=== PATIENT | male | born 1985 | race Caucasian/White ===

== ENCOUNTER 2016-07-05 07:23 | Emergency (ER) | payer OTHER ==
[2016-07-05] MEDS ORDERED: KETOROLAC TROMETHAMINE 30 MG/1 ML VIAL ONE (07:31)
[2016-07-05] MEDS ORDERED: METOCLOPRAMIDE HCL INJECTION 10 MG/2 ML VIAL ONE (07:31)
[2016-07-05] MEDS ORDERED: KETOROLAC TROMETHAMINE 30 MG/1 ML VIAL IVPUSH ONE (07:32)
[2016-07-05] MEDS ORDERED: SODIUM CHLORIDE 1,000 ML IV STA (07:32)
[2016-07-05] MEDS ORDERED: ONDANSETRON 4 MG/2 ML VIAL IVPUSH ONE (07:32)
[2016-07-05 07:35] VITALS: TEMP 97.4; BMI 19.9
[2016-07-05] MEDS ORDERED: METOCLOPRAMIDE HCL INJECTION 10 MG/2 ML VIAL IVPB ONE (07:39)
[2016-07-05 08:17] LABS: BASOPHIL 1.2 % (0-2.0); EOSINOPHIL 1.1 % (0-4.5); MCH 30.8 pg (25.7-33.7); MCHC 33.1 g/dl (32.0-35.9); MEAN CELL VOLUME 92.9 fl (80-96); MEAN PLT VOLUME 8.4 fl (7.5-11.1); NEUTROPHILS 69.5 % (42.8-82.8); PLATELET COUNT 202 K/MM3 (134-434); RDW 13.5 % (11.9-15.9); WHITE BLOOD COUNT 9.5 K/mm3 (4.0-10.0)
[2016-07-05 08:24] LABS: URINE APPEARANCE SLCLOUDY; URINE BILIRUBIN NEGATIVE (NEGATIVE); URINE COLOR YELLOW; URINE GLUCOSE (UA) NEGATIVE (NEGATIVE); URINE KETONE NEGATIVE (NEGATIVE); URINE LEUK ESTERASE NEGATIVE (NEGATIVE); URINE NITRITE NEGATIVE (NEGATIVE); URINE UROBILINOGEN NEGATIVE E.U./dl (0.2-1.0)
[2016-07-05 08:33] LABS: URINE BLOOD 3+ (NEGATIVE); URINE PROTEIN 1+ (NEGATIVE)
[2016-07-05 08:39] LABS: URINE MUCUS MODERATE; URINE RBC 1147 /hpf (0-3); URINE WBC 13 /hpf (3-5); YEAST RARE
--- NOTE | 2016-07-05 09:44 | PDOC ---
History of Present Illness - General History Source: Patient Exam Limitations: No Limitations - History of Present Illness Initial Comments: 07/05/16 09:46 The patient is a 31 year old male with no significant past medical history who presents to the emergency department with right flank pain since this morning. The patient states he was woken up from sleep with a sudden onset of severe right flank pain this morning His pain is sharp and constant in nature. The pain is localized to the right flank and radiates to the right abdomen. He states the pain is worse with movement and he denies any alleviating factors. The patient reports associated nausea but denies any vomiting. He has never experienced any pain like this before. He did not take any medication for his pain at home. He denies any recent illness, fevers, and chills. <Gracie Hauser - Last Filed: 07/05/16 09:58> <Addy Olivia - Last Filed: 07/05/16 10:41> - General Chief Complaint: Pain, Acute Stated Complaint: SIDE PAIN Time Seen by Provider: 07/05/16 07:26 Past History <Gracie Hauser - Last Filed: 07/05/16 09:58> - Past Medical History Other medical history: denies - Immunization History Immunization Up to Date: Yes - Psycho/Social/Smoking Cessation Hx Anxiety: Yes Suicidal Ideation: No Smoking History: Never smoked Have you smoked in the past 12 months: No Information on smoking cessation initiated: No Hx Alcohol Use: No Drug/Substance Use Hx: No Substance Use Type: None <Addy Olivia - Last Filed: 07/05/16 10:41> - Past Medical History Allergies/Adverse Reactions: Allergies Allergy/AdvReac Type Severity Reaction Status Date / Time No Known Allergies Allergy Verified 03/25/15 14:18 Home Medications: Ambulatory Orders Oxycodone HCl/Acetaminophen [Percocet 5-325 mg Tablet] 1 tab PO Q6H #14 tablet MDD 4 07/05/16 Review of Systems - Review of Systems Able to Perform ROS?: Yes Comments:: 07/05/16 09:46 CONSTITUTIONAL: No fever, no chills, no fatigue EYES: No visual changes ENT: No ear pain, no sore throat CARDIOVASCULAR: No chest pain, no palpitations RESPIRATORY: No cough, no SOB GI: +Nausea. No abdominal pain, no vomiting, no constipation, no diarrhea GENITOURINARY: No dysuria, no frequency, no hematuria MUSCULOSKELETAL: +Right flank pain. No back pain, no joint pain, no myalgias SKIN: No rash NEURO: No headache <Gracie Hauser - Last Filed: 07/05/16 09:58> *Physical Exam - Vital Signs Last Vital Signs Temp Pulse Resp BP Pulse Ox 97.4 F L 89 22 165/88 100 07/05/16 07:30 07/05/16 07:30 07/05/16 07:30 07/05/16 07:30 07/05/16 07:30 - Physical Exam Comments: 07/05/16 09:46 CONSTITUTIONAL: Well-appearing; well-nourished; +writhing in pain. HEAD: Normocephalic; atraumatic EYES: PERRL; EOM intact ENMT: External appears normal; normal oropharynx NECK: Supple; non-tender; no cervical lymphadenopathy CARD: Normal S1, S2; no murmurs, rubs, or gallops RESP: Normal chest excursion with respiration; breath sounds clear and equal bilaterally; no wheezes, rhonchi, or rales ABD: +Right CVA tenderness. Soft, non-distended; non-tender; no palpable organomegaly, no palpable hernias EXT: Normal ROM in all four extremities; non-tender to palpation; distal pulses intact SKIN: Warm, dry, no rash NEURO: No focal neurological deficiencies. <MurtazaGracie - Last Filed: 07/05/16 09:58> - Vital Signs Last Vital Signs Temp Pulse Resp BP Pulse Ox 97.4 F L 89 22 165/88 100 07/05/16 07:30 07/05/16 07:30 07/05/16 07:30 07/05/16 07:30 07/05/16 07:30 <Addy Olivia - Last Filed: 07/05/16 10:41> ED Treatment Course - LABORATORY CBC & Chemistry Diagram: 07/05/16 07:41 07/05/16 07:41 - ADDITIONAL ORDERS Additional order review: Laboratory Results 07/05/16 07/05/16 07:41 07:41 Sodium Cancelled Potassium Cancelled Chloride Cancelled Carbon Dioxide Cancelled Anion Gap Cancelled BUN Cancelled Creatinine Cancelled Creat Clearance w eGFR Cancelled Random Glucose Cancelled Calcium Cancelled Total Bilirubin Cancelled AST Cancelled ALT Cancelled Alkaline Phosphatase Cancelled Total Protein Cancelled Albumin Cancelled Urine Color Yellow Urine Appearance Slcloudy Urine pH 6.0 Ur Specific [place] 1.019 Urine Protein 1+ H Urine Glucose (UA) Negative Urine Ketones Negative Urine Blood 3+ H Urine Nitrite Negative Urine Bilirubin Negative Urine Urobilinogen Negative Ur Leukocyte Esterase Negative Urine RBC 1147 Urine WBC 13 Urine Mucus Moderate Urine Yeast Rare 07/05/16 07:41 RBC 5.38 MCV 92.9 MCHC 33.1 RDW 13.5 MPV 8.4 Neutrophils % 69.5 Lymphocytes % 21.9 Monocytes % 6.3 Eosinophils % 1.1 Basophils % 1.2 - RADIOLOGY Radiograph Interpretation: 07/05/16 09:59 CT/SPIRAL RENAL STONE CT: Reviewed and interpreted by radiologist Dre Mendoza MD. IMPRESSION: 2.5 mm obstructing stone in the distal right ureter just prior to the ureterovesical junction with mild fullness of the right renal pelvis and mild right hydroureter.. Follow-up is needed. No right renal stone is identified. Nonobstructing left renal stones with the largest measuring 5 mm. - Medications Given in the ED: ED Medications Discontinued Medications Generic Name Dose Route Start Last Admin Trade Name Freq PRN Reason Stop Dose Admin Sodium Chloride 1,000 mls @ 1,000 mls/hr 07/05/16 07:32 07/05/16 07:30 Normal Saline - IV 07/05/16 08:31 1,000 mls/hr ASDIR STA Administration Ketorolac Tromethamine 30 mg 07/05/16 07:32 07/05/16 07:30 Toradol Injection - IVPUSH 07/05/16 07:33 30 mg ONCE ONE Administration Metoclopramide HCl 10 mg 07/05/16 07:39 07/05/16 07:30 Reglan Injection - IVPB 07/05/16 07:40 10 mg ONCE ONE Administration Ondansetron HCl 4 mg 07/05/16 07:32 07/05/16 07:47 Zofran Injection IVPUSH 07/05/16 07:33 Not Given ONCE ONE <Gracie Hauser - Last Filed: 07/05/16 09:58> - LABORATORY CBC & Chemistry Diagram: 07/05/16 07:41 07/05/16 09:25 - ADDITIONAL ORDERS Additional order review: Laboratory Results 07/05/16 07/05/16 07:41 07:41 Sodium Cancelled Potassium Cancelled Chloride Cancelled Carbon Dioxide Cancelled Anion Gap Cancelled BUN Cancelled Creatinine Cancelled Creat Clearance w eGFR Cancelled Random Glucose Cancelled Calcium Cancelled Total Bilirubin Cancelled AST Cancelled ALT Cancelled Alkaline Phosphatase Cancelled Total Protein Cancelled Albumin Cancelled Urine Color Yellow Urine Appearance Slcloudy Urine pH 6.0 Ur Specific [place] 1.019 Urine Protein 1+ H Urine Glucose (UA) Negative Urine Ketones Negative Urine Blood 3+ H Urine Nitrite Negative Urine Bilirubin Negative Urine Urobilinogen Negative Ur Leukocyte Esterase Negative Urine RBC 1147 Urine WBC 13 Urine Mucus Moderate Urine Yeast Rare 07/05/16 07:41 RBC 5.38 MCV 92.9 MCHC 33.1 RDW 13.5 MPV 8.4 Neutrophils % 69.5 Lymphocytes % 21.9 Monocytes % 6.3 Eosinophils % 1.1 Basophils % 1.2 - RADIOLOGY Radiology Studies Ordered: Category Date Time Status SPIRAL- RENAL-STONE CT [CT] Stat CT Scan 07/05/16 08:33 Taken - Medications Given in the ED: ED Medications Discontinued Medications Generic Name Dose Route Start Last Admin Trade Name Freq PRN Reason Stop Dose Admin Sodium Chloride 1,000 mls @ 1,000 mls/hr 07/05/16 07:32 07/05/16 07:30 Normal Saline - IV 07/05/16 08:31 1,000 mls/hr ASDIR STA Administration Ketorolac Tromethamine 30 mg 07/05/16 07:32 07/05/16 07:30 Toradol Injection - IVPUSH 07/05/16 07:33 30 mg ONCE ONE Administration Metoclopramide HCl 10 mg 07/05/16 07:39 07/05/16 07:30 Reglan Injection - IVPB 07/05/16 07:40 10 mg ONCE ONE Administration Ondansetron HCl 4 mg 07/05/16 07:32 07/05/16 07:47 Zofran Injection IVPUSH 07/05/16 07:33 Not Given ONCE ONE <Addy Olivia - Last Filed: 07/05/16 10:41> Medical Decision Making - Medical Decision Making 07/05/16 10:28 Patient is a 31-year-old male who presented with atraumatic right flank pain radiating to the right lower quadrant, associated with nausea. I suspect renal colic. CBC/CMP within normal limit. Urinalysis reveals more than 1100 RBCs per high-power field and 13 WBCs likely related to hematuria. I do not suspect UTI. CT shows an obstructing 2.5 mm distal ureteral stone with hydronephrosis. Patient received Toradol and Zofran and is currently symptom-free. Patient tolerates by mouth. Will discharge with pain meds and urology follow-up for further evaluation and treatment <Addy Olivia - Last Filed: 07/05/16 10:41> *DC/Admit/Observation/Transfer - Attestations Scribe Attestion: 07/05/16 09:46 Documentation prepared by Gracie Hauser, acting as medical equipment sales for Addy Olivia MD. <Gracie Hauser - Last Filed: 07/05/16 09:58> - Attestations Physician Attestion: 07/05/16 10:28 The documentation was prepared by the scribe under my direct supervision. I have reviewed the documentation which correctly represents the findings, medical decision-making and critical action taken by me. <Addy Olivia - Last Filed: 07/05/16 10:41> Diagnosis at time of Disposition: Calculus of right kidney - Discharge Dispostion Disposition: HOME Condition at time of disposition: Stable - Referrals Referrals: Alonso Barnes MD [Staff Physician] - - Patient Instructions Printed Discharge Instructions: DI for Kidney Stones
[2016-07-05 10:06] LABS: ALBUMIN 3.9 g/dl (3.4-5.0); ALK PHOS 80 U/L (45-117); ANION GAP 6 (8-16); BILIRUBIN,TOTAL 0.4 mg/dL (0.2-1.0); CALCIUM 8.5 mg/dL (8.5-10.1); CO2 29 mmol/L (21-32); CREATININE 1.2 mg/dL (0.7-1.3); GLUCOSE,RANDOM 84 mg/dL (74-106); SGOT/AST 25 U/L (15-37); SGPT/ALT 26 U/L (12-78); TOT PROT 6.9 g/dl (6.4-8.2)
[2016-07-05 10:49] VITALS: BP 129/74; PULSE 80
== END 2016-07-05 10:49 | disposition home or self-care (01) ==
LOC: JER 07:23
PROC: 3E0333Z Introduction of Anti-inflammatory into Peripheral Vein, Percutaneous Approach (ICD-10-PCS; principal; 2016-07-05)
PROC: 3E033GC Introduction of Other Therapeutic Substance into Peripheral Vein, Percutaneous Approach (ICD-10-PCS; 2016-07-05)
PROC: 3E0337Z Introduction of Electrolytic and Water Balance Substance into Peripheral Vein, Percutaneous Approach (ICD-10-PCS; 2016-07-05)
DX: N23 Unspecified renal colic (principal)
CPT/HCPCS: 36415; 74176; 80053; 81003; 81015; 85025; 87086; 96361; 96374; 96375; 99283-25

== ENCOUNTER → 2016-07-10 | Emergency (ER) | payer OTHER ==
[~2016-07-10] MED LIST: ALBUTEROL SO4 0.083% IH SOL 2.5 MG/3 ML VIAL.NEB. NEB ONE; IBUPROFEN 800 MG/8 ML IJ IVPB ONE; METOCLOPRAMIDE HCL INJECTION 10 MG/2 ML VIAL IVPUSH ONE; METOCLOPRAMIDE HCL INJECTION 10 MG/2 ML VIAL ONE; SODIUM CHLORIDE 1,000 ML IV ONE
[2016-07-10 10:36] VITALS: TEMP 98.8; BMI 19.9
--- NOTE | 2016-07-10 11:55 | PDOC ---
[id number]: No Limitations - History of Present Illness Initial Comments: 07/10/16 12:26 The patient is a 31-year-old man, with a past medical history of anxiety who presents to the emergency department for further evaluation of chest pain. He admits he has been experiencing intermittent episodes of mid-sternal, nonradiating pressure chest discomfort for the past few months. His last episode was approximately 2 weeks ago, which lasted several hours and resolves on its own. He went out last night, smoked hookah and at approximately 04:00 AM , he experienced his typical chest discomfort symptoms that woke him up from his sleep. He reports measuring both his blood pressure and heart rate. He does not recall the measurements but states it was elevated. He expresses concern, as his symptoms have remains constant, which is different than usual. 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 He denies associated symptoms of fever, chills, cough, generalized weakness, shortness of breath, headache, visual changes, leg swelling, abdominal pain, nausea, vomiting, diarrhea. He also reports his right flank/back pain. He was seen in this ED, approximately 5 days ago, for which he underwent a Spiral CT that was indicative of a 2.5 mm obstructing stone in the distal right ureter just prior to the ureterovesical junction with mild fullness of the right pelvis and mild right hydroureter. He currently denies any urinary symptoms. Allergies: No Known Drug Allergies. Past Surgical History: None reported. Social History: No tobacco, ETOH and recreational drug use. Primary Care Physician: Dr. Mars Marcus [phone] <Eugenie Alvarado - Last Filed: 07/10/16 19:19> - General History Source: Patient Exam Limitations: No Limitations <Song Malik - Last Filed: 07/12/16 09:09> - General Chief Complaint: Chest Pain Stated Complaint: PALPITATIONS, CHEST PAIN Time Seen by Provider: 07/10/16 11:29 Past History <Eugenie Alvarado - Last Filed: 07/10/16 19:19> - Past Medical History Other medical history: denies - Immunization History Immunization Up to Date: Yes - Psycho/Social/Smoking Cessation Hx Anxiety: Yes Suicidal Ideation: No Smoking History: Never smoked Have you smoked in the past 12 months: No Hx Alcohol Use: No Drug/Substance Use Hx: No Substance Use Type: None <KingSong - Last Filed: 07/12/16 09:09> - Past Medical History Allergies/Adverse Reactions: Allergies Allergy/AdvReac Type Severity Reaction Status Date / Time No Known Allergies Allergy Verified 07/10/16 12:23 Home Medications: Ambulatory Orders NK [No Known Home Medication] 07/10/16 Review of Systems - Review of Systems Able to Perform ROS?: Yes Comments:: 07/10/16 12:26 CONSTITUTIONAL: No reported: Fever, Chills, Diaphoresis, Generalized Weakness, Malaise, Loss of Appetite HEENT: No reported: Rhinorrhea, Nasal Congestion, Throat Pain, Throat Swelling, Difficulty Swallowing, Mouth Swelling, Ear Pain, Eye Pain, Visual Changes CARDIOVASCULAR: No reported: Chest Pain, Syncope, Palpitations, Irregular Heart Rate, Lightheadedness, Peripheral Edema RESPIRATORY: No reported: Cough, Shortness of Breath, SOB with Exertion, Orthopnea, Wheezing , Stridor, Hemoptysis GASTROINTESTINAL: No reported: Abdominal pain, Abdominal Distension, Nausea, Vomiting, Diarrhea, Constipation, Melena, Hematochezia GENITOURINARY: No reported: Dysuria, Frequency, Urgency, Hesitancy, Flank Pain, Genital Pain MUSCULOSKELETAL: No reported: Myalgia, Arthralgia, Joint Swelling, Back pain, Neck Pain SKIN: No reported: Rash, Itching, Pallor HEMEATOLOGIC/IMMUNOLOGIC: No reported: Easy Bleeding, Easy Bruising, Lymphadenopathy, Frequent infections ENDOCRINE: No reported: Unexplained Weight Gain, Unexplained Weight Loss, Heat Intolerance , Cold Intolerance NEUROLOGIC: No reported: Headache, Focal Weakness, Paresthesias, Vertigo, Lightheadedness, Unsteady Gait, Seizure, Mental Status Changes, Incontinence PSYCHIATRIC: No reported: Anxiety, Depression <Eugenie Alvarado - Last Filed: 07/10/16 19:19> *Physical Exam - Vital Signs Last Vital Signs Temp Pulse Resp BP Pulse Ox 98.8 F 124 H 14 146/82 98 07/10/16 10:31 07/10/16 10:31 07/10/16 10:31 07/10/16 10:31 07/10/16 10:31 - Physical Exam Comments: 07/10/16 12:26 GENERAL: The patient is awake, alert, and fully oriented, Nontoxic - in no acute distress. HEAD: Normocephalic, atraumatic. EYES: extraocular movements intact, sclera anicteric, conjunctiva clear. ENT: Normal voice, mildly dry mucous membranes. NECK: Normal range of motion, supple LUNGS: Breath sounds equal, clear to auscultation bilaterally. No wheezes, no rhonchi, no rales. HEART: tachycardic, without murmur, rub or gallop. ABDOMEN: Soft, there is some mild tenderness to palpation over the left lower quadrant. Normoactive bowel sounds. No guarding, no rebound.No CVA tenderness EXTREMITIES: Normal range of motion, no edema. No clubbing or cyanosis. No cords, erythema, or tenderness. Negative homans NEUROLOGICAL: No facial assymetry, Normal speech, PSYCH: Normal mood, normal affect. SKIN: Warm, Dry, normal turgor <Eugenie Alvarado - Last Filed: 07/10/16 19:19> - Vital Signs Last Vital Signs Temp Pulse Resp BP Pulse Ox 98.8 F 124 H 14 146/82 98 07/10/16 10:31 07/10/16 10:31 07/10/16 10:31 07/10/16 10:31 07/10/16 10:31 <Song Malik - Last Filed: 07/12/16 09:09> Heart Score/ECG Review - ECG Impressions Comment:: 07/10/16 12:16 Twelve-lead EKG was performed and reviewed by me. There is normal sinus rhythm with a rate of 124 The axis is normal. The intervals are normal. There is normal R wave progression There are no ST or T wave abnormalities. Impression: sinus tachyardia <Song Malik - Last Filed: 07/12/16 09:09> ED Treatment Course - LABORATORY CBC & Chemistry Diagram: 07/10/16 11:30 07/10/16 12:28 - RADIOLOGY Radiograph Interpretation: 07/10/16 16:08 EXAM: RAD/CHEST PA LAT IMPRESSION: Frontal and lateral views of the chest reveal a normal sized heart with normal vascularity. The lung watts are clear without evidence of mass or infiltrate. The costophrenic sulci are clear. The mediastinal, osseous and soft tissue structures as visualized are normal. - Medications Given in the ED: ED Medications Discontinued Medications Generic Name Dose Route Start Last Admin Trade Name Myron PRN Reason Stop Dose Admin Metoclopramide HCl 10 mg 07/10/16 11:51 07/10/16 12:04 Reglan Injection - IVPUSH 07/10/16 11:52 10 mg ONCE ONE Administration <Eugenie Alvarado - Last Filed: 07/10/16 19:19> - LABORATORY CBC & Chemistry Diagram: 07/10/16 11:30 07/10/16 12:28 - RADIOLOGY Radiology Studies Ordered: Category Date Time Status CHEST PA & LAT [RAD] Stat Radiology 07/10/16 11:53 Ordered <Song Malik - Last Filed: 07/12/16 09:09> Medical Decision Making - Medical Decision Making 07/10/16 12:14 31y M hx of kidney stones presents with complaint of chest pain, palpitations, cp described as substernal pressure starting approx 4am, pt does endorse having some hookah last night, unsure if it had nicotine -d enies any other toxic habits. pts exam noted for tachycardia otheriwse unremarkable exam. ?toxic/metabolic effect from hookah vs dehydration no sob, leg swelling, exertional symptoms nor other risk factors to suggest PE. will give fluids low risk for PE, acs with lack of risk factors, exertional symptoms, hemoptysis , leg swelling will ck labs to r/o anemia, metabolic dernagement ekg shows isnus tach w/o any arrythmias will reassess A portion of this note was documented by scribe services under my direction. I have reviewed the details of the note, within reason, and agree with the documentation with the following case summary and management plan written by me 07/10/16 15:21 pt feeling improved labs unremarkable cxr negative awaiting repeat vitals if normal will d/c with pmd fu return precautions 07/10/16 16:26 repeat vitals normal pt asypmtomatic suspect his tachycardia secondary to dehdration as his HR improved after hdyration. I discussed the physical exam findings, ancillary test results and final diagnoses with the patient. I answered all of the patient's questions. The patient was satisfied with the care received and felt comfortable with the discharge plan and treatment plan. The patient will call their primary care physician within 24 hours to arrange follow-up and will return to the Emergency Department with any new, persistent or worsening symptoms. <Song Malik - Last Filed: 07/12/16 09:09> *DC/Admit/Observation/Transfer - Attestations Scribe Attestion: 07/10/16 13:18 Documentation prepared by Eugenie Alvarado, acting as medical secretary receptionist for Song Malik MD. <Eugenie Alvarado - Last Filed: 07/10/16 19:19> - Discharge Dispostion Admit: No <Song Malik - Last Filed: 07/12/16 09:09> Diagnosis at time of Disposition: Palpitations, Dehydration Chest pain Qualifiers: Chest pain type: unspecified Qualified Code(s): R07.9 - Chest pain, unspecified - Discharge Dispostion Disposition: HOME Condition at time of disposition: Improved - Referrals Referrals: Mars Marcus [Primary Care Provider] - - Patient Instructions Printed Discharge Instructions: DI for Atypical Chest Pain, DI for Palpitations Additional Instructions: Return to the emergency department immediately with ANY new, persistent or worsening symptoms. You MUST call and follow up with your doctor tomorrow for further evaluation of your symptoms. Results were discussed with you. Please make sure your doctor reviews the results of your emergency evaluation. If you had any xrays during your visit, it was read preliminarily by myself, a Radiologist will review it and if there are any additional findings we will call you. Print Language: ESTONIAN
[2016-07-10 12:48] LABS: BASOPHIL 0.7 % (0-2.0); EOSINOPHIL 0.1 % (0-4.5); MCH 29.9 pg (25.7-33.7); MCHC 32.5 g/dl (32.0-35.9); MEAN CELL VOLUME 92.1 fl (80-96); MEAN PLT VOLUME 8.5 fl (7.5-11.1); NEUTROPHILS 83.8 % (42.8-82.8); PLATELET COUNT 211 K/MM3 (134-434); RDW 13.6 % (11.9-15.9); WHITE BLOOD COUNT 13.8 K/mm3 (4.0-10.0)
[2016-07-10 12:59] LABS: INR 1.2 (0.82-1.09); PROTHROMBIN TIME (PATIENT) 13.2 SEC (9.98-11.88)
[2016-07-10 13:22] LABS: URINE APPEARANCE CLEAR; URINE BILIRUBIN NEGATIVE (NEGATIVE); URINE BLOOD NEGATIVE (NEGATIVE); URINE COLOR STRAW; URINE GLUCOSE (UA) NEGATIVE (NEGATIVE); URINE KETONE TRACE (NEGATIVE); URINE LEUK ESTERASE NEGATIVE (NEGATIVE); URINE NITRITE NEGATIVE (NEGATIVE); URINE PROTEIN NEGATIVE (NEGATIVE); URINE UROBILINOGEN NEGATIVE E.U./dl (0.2-1.0)
[2016-07-10 13:27] LABS: ALBUMIN 4.5 g/dl (3.4-5.0); ANION GAP 9 (8-16); BILIRUBIN,TOTAL 0.6 mg/dL (0.2-1.0); CO2 29 mmol/L (21-32); CREATININE 1.2 mg/dL (0.7-1.3); GLUCOSE,RANDOM 72 mg/dL (74-106); MAGNESIUM 2.1 mg/dL (1.8-2.4); SGOT/AST 18 U/L (15-37); SGPT/ALT 22 U/L (12-78); TOT PROT 7.9 g/dl (6.4-8.2)
[2016-07-10 13:35] LABS: ALK PHOS 85 U/L (45-117)
[2016-07-10 14:10] LABS: TROPONIN I < 0.02 ng/ml (0.00-0.05)
[2016-07-10 16:04] VITALS: BP 130/67; PULSE 92
--- NOTE | 2016-07-10 16:05 | EKG ---
Test Reason : Blood Pressure : / mmHG Vent. Rate : 120 BPM Atrial Rate : 120 BPM P-R Int : 144 ms QRS Dur : 084 ms QT Int : 316 ms P-R-T Axes : 071 038 060 degrees QTc Int : 446 ms SINUS TACHYCARDIA POSSIBLE LEFT ATRIAL ENLARGEMENT BORDERLINE ECG WHEN COMPARED WITH ECG OF 25-MAR-2015 14:17, VENT. RATE HAS INCREASED BY 54 BPM NONSPECIFIC T WAVE ABNORMALITY NOW EVIDENT IN ANTERIOR LEADS Confirmed by ELIZABETH LANDRY MD ([id number]) on 07/10/2016 4:04:41 PM Referred By: Confirmed By:ELIZABETH LANDRY MD
== END | disposition home or self-care (01) ==
LOC: JER 10:24
PROC: 3E0337Z Introduction of Electrolytic and Water Balance Substance into Peripheral Vein, Percutaneous Approach (ICD-10-PCS; principal; 2016-07-10)
PROC: 3E033GC Introduction of Other Therapeutic Substance into Peripheral Vein, Percutaneous Approach (ICD-10-PCS; 2016-07-10)
DX: R07.9 Chest pain, unspecified (principal); R00.2 Palpitations; E86.0 Dehydration
CPT/HCPCS: 36415; 71020-TC; 80053; 81003; 82550; 82553; 83690; 83735; 84443; 84484; 85025; 85610; 93005; 93010; 99285-25